=== PATIENT | male | born 1985 | race Caucasian/White ===

== ENCOUNTER 2023-08-06 04:40 | Emergency (ER) | payer MEDICAID, SELFPAY ==
--- NOTE | ~2023-08-06 | CT_ITS ---
CT of the Abdomen and Pelvis: Indication: Abdominal pain, right inguinal hernia Technique: 2.5 mm axial scans were obtained through the abdomen and pelvis following intravenous adm inistration of 100 cc of Omnipaque 350. Dose reduction technique was used on this scan by utilizing a utomated exposure control and iterative reconstruction technique. The dose-length product (DLP) was 5 50.37 mGy-cm. Findings: Scans through the lung bases are unremarkable. The liver, spleen, pancreas, gallbladder, and adrenal glands are within normal limits. There is minim al fullness of the bilateral renal collecting systems. No evidence of aortic aneurysm. No lymphadeno samia. No bowel obstruction or bowel wall thickening. There is no evidence to suggest acute appendicitis. Images through the pelvis were performed. Urinary bladder is well distended. Prostate gland and semin al vesicles are unremarkable. No ascites. Impression: Distended urinary bladder with minimal fullness of the bilateral renal collecting systems. Correlate for urinary retention. No other significant findings. Reviewed, dictated and finalized at location . Impression: Distended urinary bladder with minimal fullness of the bilateral renal collecti ng systems. Correlate for urinary retention. No other significant findings.
[2023-08-06 04:41] VITALS: BP 139/85; PULSE 80; RESP 18; TEMP 36.8; O2SAT 97
--- NOTE | 2023-08-06 04:59 | ED.ABDPAIN ---
HPI - Abdominal Pain General Chief Complaint: Abdominal Pain Stated Complaint: Right Flank Pain Source: patient and family Mode of arrival: ambulatory Limitations: no limitations History of Present Illness HPI narrative: this is a 37-year-old male that presents with some abdominal pain localizing to the right inguinal area a small area in the right inguinal area of his abdomen that is tender with palpation has good no nausea vomiting has had symptoms off and on for the last year and has gotten worse overnight. No other significant past medical history. There is no flank pain, no dysuria no chest pain no shortness of breath. MD elicited complaint: abdominal pain Severity: moderate Pain scale (0-10): 8 Related Data Home Medications Medication Instructions Recorded Confirmed No Home Medications 08/06/23 08/06/23 Allergies Allergy/AdvReac Type Severity Reaction Status Date / Time No Known Allergies Allergy Verified 08/06/23 04:44 Review of Systems Review of Systems: All systems reviewed & are unremarkable except as noted in HPI and below PMFSH Past Medical History Medical History Patient denies medical problems Exam Const: General: no acute distress Nutritional Appearance: well nourished Orientation/consciousness: patient oriented x3 Limitations: no limitations Neck: Neck: normal visual inspection Chest: Chest palpation & inspection: normal inspection of the chest Resp: Effort & Inspection: normal respiratory effort Auscultation: clear to auscultation bilaterally Cardio: Rate: regular rate Rhythm: regular rhythm GI: GI Palp: Yes Soft to palpation and Yes Tenderness to palpation present (GI) : General: Yes bladder normal to palpation Back/Spine/Pelvis: Back: no CVA tenderness Skin: General skin exam: normal color Rashes: no rashes Neuro: General: patient oriented x3 Cranial nerves: Yes Nystagmus not present Speech: normal speech Extrem: General: normal to inspection Psych: Mental Status: mental status grossly normal Affect: normal affect Course Course Emergency Course: reassessment of patient's pain has improved with IV morphine, labs reviewed with patient and all within normal limits, patient had CT scan and O was reviewed that showed no right inguinal hernia. Vital Signs Vital signs: Vital Signs Temperature 36.8 C 08/06/23 04:41 Pulse Rate 80 08/06/23 04:41 Respiratory Rate 18 08/06/23 04:41 Blood Pressure 139/85 08/06/23 04:41 Pulse Oximetry 97 08/06/23 04:41 Oxygen Delivery Room Air 08/06/23 04:41 Temperature 36.8 C 08/06/23 04:41 Pulse Rate 80 08/06/23 04:41 Respiratory Rate 18 08/06/23 04:41 Blood Pressure 139/85 08/06/23 04:41 Pulse Oximetry 97 08/06/23 04:41 Oxygen Delivery Room Air 08/06/23 04:41 Critical Care Time Critical Care Time Critical Care Time: No Discharge Plan Discharge Clinical Impression: Abdominal pain Qualifiers: Abdominal location: unspecified location Qualified Code(s): R10.9 - Unspecified abdominal pain Patient Disposition: Home, Self-Care Condition: Stable Instructions: Antibiotic Form, Abdominal Pain (ED) Additional Instructions: advised to establish with primary for possible referral to surgery to have further evaluation. Prescriptions: No Action No Home Medications Follow-up/Referrals: UNKNOWN,DOCTOR [Primary Care Provider] - Time of Disposition: 06:40
[2023-08-06 05:13] LABS: Basophils Absolute Auto 0.11 K/mm3 (0.00-0.10); Basophils Percent Auto 1.5 % (0.0-1.0); Eosinophils Absolute Auto 0.32 K/mm3 (0.02-0.50); Eosinophils Percent Auto 4.2 % (1.0-6.0); Hematocrit 42.6 % (40.0-54.0); Hemoglobin 14.5 g/dL (14.0-18.0); Immature Granulocyte Absolute 0.01 K/mm3 (0.00-0.00); Immature Granulocyte Percent A 0.1 % (0.0-0.0); Lymphocytes Percent Auto 43.8 % (18.0-42.0); Mean Corpuscular Hemoglobin 29.5 pg (27.0-31.0); Mean Corpuscular Volume 86.6 fL (78.0-102.0); Mean Platelet Volume 9.5 fl (8.7-11.0); Monocytes Absolute Auto 0.36 K/mm3 (0.10-0.90); Monocytes Percent Auto 4.8 % (2.0-11.0); Neutrophils Absolute Auto 3.4 K/mm3 (1.7-7.2); Neutrophils Percent Auto 45.6 % (50.0-70.0); Platelet Count Result 304 K/mm3 (150-420); Red Blood Count 4.92 M/mm3 (4.70-6.10); Red Cell Distribution Width 12.9 % (11.6-14.4); White Blood Count 7.5 K/mm3 (4.8-10.8)
[2023-08-06] MEDS: SODIUM CHLORIDE 0.9% IV 1,000 ML 999 ML IV CONT (05:19)
[2023-08-06] MEDS: MORPHINE SULFATE (*CRX) 4 MG/ML INJ IV PUSH (05:20)
[2023-08-06 05:28] LABS: Alanine Aminotransferase 24 U/L (16-63); Albumin Level 4.2 g/dL (3.4-5.0); Alkaline Phosphatase 71 U/L (46-116); Anion Gap 13 mmol/L (8-16); Aspartate Amino Transferase 14 U/L (15-37); Bilirubin,Total 0.4 mg/dL (0.00-1.00); Blood Urea Nitrogen 6 mg/dL (7-18); Calcium 8.8 mg/dL (8.5-10.1); Carbon Dioxide 23 mmol/L (21-32); Chloride 107 mmol/L (98-108); Estimated CRCL calculation 87 ml/min; Estimated Glomerular Filt Rate > 60; Glucose 102 mg/dL (70-99); Lipase 48 U/L (16-77); Osmolality Calculated 293 mOsm/kg (285-295); Potassium 3.6 mmol/L (3.5-5.1); Sodium 143 mmol/L (136-145); Total Protein 7.6 g/dL (6.4-8.2)
[2023-08-06 05:32] LABS: Lactic Acid Reflex 1.9 mmol/L (0.4-2.0)
[2023-08-06 05:58] LABS: INR 0.9; Partial Thromboplastin Time 25.9 SEC (23.90-30.70); Prothrombin Time 10.1 Seconds (9.50-12.10)
[2023-08-06 06:07] VITALS: BP 130/78; PULSE 87; RESP 18; O2SAT 99
[2023-08-06 06:17] LABS: Appearance Urine Clear (Clear); Bilirubin Urine Negative (Negative); Blood Urine Trace-Intact (Negative); Color Urine Light Yellow (Yellow); Glucose Urine UA Negative (Negative); Ketones Urine Negative (Negative); Leukocyte Esterase Ur Negative LEU/UL (Negative); Nitrate Urine Negative (Negative); Protein Urine Negative (Negative); Specific Grav Ur <= 1.005 (1.010-1.020); Urobilinogen Urine 0.2 mg/dL (0.2-1.0)
[2023-08-06 06:23] LABS: Add Urine Microscopic? YES; Bacteria Urine None seen /hpf; RBC Urine None seen /hpf (0-2); WBC Urine None seen /hpf (0-3)
[2023-08-06 06:47] VITALS: BP 125/83; PULSE 78; RESP 20; TEMP 36.6; O2SAT 100
== END 2023-08-06 06:48 | disposition home or self-care (01) ==
PROVIDERS: Emergency Provider Emergency Medicine
DX: R10.9 Unspecified abdominal pain (principal)
CPT/HCPCS: 36415; 74177; 80053; 81001; 83605; 83690; 85025; 85610; 85730; 96361; 96374; 99284; J2270; J7030; Q9967

== ENCOUNTER 2023-08-13 14:15 | Outpatient (CLI) | payer MEDICAID, SELFPAY ==
[2023-08-13 19:11] LABS: Basophils Absolute Auto 0.1 K/mm3 (0.0-0.1); Basophils Percent Auto 1.3 % (0.2-1.2); Eosinophils Absolute Auto 0.2 K/mm3 (0-0.3); Eosinophils Percent Auto 3.7 % (0-4.4); Hematocrit 46.6 % (42.0-52.0); Hemoglobin 15.7 g/dL (14.0-18.0); Immature Granulocyte Absolute 0.01 K/mm3 (0.00-0.031); Immature Granulocyte Percent A 0.2 % (0-0.5); Immature Platelet Fraction Pct 5.6 % (0.9-11.2); Lymphocytes Absolute Auto 1.93 K/mm3 (0.9-3.2); Lymphocytes Percent Auto 35.9 % (18.3-44.2); Mean Corpuscular HGB Conc 33.7 g/dl (32-36); Mean Corpuscular Hemoglobin 29.8 pg (26-34); Mean Corpuscular Volume 88.6 fl (80-100); Mean Platelet Volume 11.1 fl (7.4-10.4); Monocytes Absolute Auto 0.4 K/mm3 (0.1-0.6); Monocytes Percent Auto 7.1 % (2.6-8.5); Neutrophils Absolute Auto 2.8 K/mm3 (1.3-6.7); Neutrophils Percent Auto 51.8 % (45.5-73.1); Platelet Count Result 259 k/mm3 (150-375); Red Blood Count 5.26 M/mm3 (4.6-6.20); Red Cell Distribution Width 13.2 % (11.5-14.5); White Blood Count 5.4 K/mm3 (4.5-10.0)
[2023-08-13 19:23] LABS: Alanine Aminotransferase 19 U/L (6-50); Albumin Level 4.8 g/dL (3.5-5.1); Alkaline Phosphatase 49 U/L (38-126); Anion Gap 8 mmol/L (8-16); Aspartate Amino Transferase 29 U/L (17-59); Bilirubin,Total 1.2 mg/dL (0.2-1.3); Blood Urea Nitrogen 10 mg/dL (9-20); Calcium 9.3 mg/dL (8.4-10.2); Carbon Dioxide 26 mmol/L (22-30); Chloride 106 mmol/L (98-107); Cholesterol 160 mg/dL (0-200); Estimated Glomerular Filt Rate > 60; Glucose 87 mg/dL (65-110); HDL Direct 47 mg/dL; Potassium 4.8 mmol/L (3.4-5.0); Sodium 140 mmol/L (137-145); Triglycerides 62 mg/dL (<150)
[2023-08-13 19:34] LABS: LDL Cholesterol Direct 88 mg/dL
[2023-08-13 19:54] LABS: Thyroid Stimulating Hormone 0.789 uIU/mL (0.465-4.680)
[2023-08-13 19:58] LABS: Vitamin D 25 Hydroxy 55.6 ng/mL
[2023-08-13 20:16] LABS: Hemoglobin A1C 5.1 % (<5.7)
== END 2023-08-13 14:16 | disposition home or self-care (01) ==
PROVIDERS: PCP Family Medicine; Visit Provider Nurse Practitioner Family
DX: Z00.00 Encounter for general adult medical examination without abnormal findings (principal); E53.8 Deficiency of other specified B group vitamins; Z13.220 Encounter for screening for lipoid disorders; Z13.1 Encounter for screening for diabetes mellitus; Z13.29 Encounter for screening for other suspected endocrine disorder; Z13.21 Encounter for screening for nutritional disorder
CPT/HCPCS: 36415; 80053; 80061; 82306; 82607; 83036; 84443; 85025; 85055

== ENCOUNTER 2023-08-19 14:26 | Outpatient (CLI) | payer MEDICAID, SELFPAY ==
--- NOTE | ~2023-08-19 | US_ITS ---
EXAMINATION: US soft tissue groin RT DATE: 08/19/2023 14:47 INDICATION: Abdominal pain. Right inguinal hernia without obstruction. TECHNIQUE: Multiple grayscale and Doppler ultrasound images of the right inguinal region were obtaine d. COMPARISON: CT dated 08/06/2023 FINDINGS: There is a small hernia at the region of concern containing fat at rest. A short segment of peristals ing bowel along with some additional fat transiently extends into the hernia with Valsalva. The orifi ce to the hernia measures approximately 4.4 x 2.5 cm and extends to an orifice measuring approximatel y 1.6 cm. The hernia lies along side the common femoral artery with configuration on prior CT also co nsistent with a femoral status post inguinal hernia. IMPRESSION: 1. Small segment of peristalsing bowel transiently extends into a small right femoral hernia with Tawana silvia. Reviewed, dictated and finalized at location A. IMPRESSION: 1. Small segment of peristalsing bowel transiently extends into a small right f emoral hernia with Valsalva.
== END 2023-08-19 14:27 | disposition home or self-care (01) ==
LOC: CHSIMG 14:27
PROVIDERS: PCP Nurse Practitioner Family; Visit Provider Nurse Practitioner Family
DX: K40.90 Unilateral inguinal hernia, without obstruction or gangrene, not specified as recurrent (principal)
CPT/HCPCS: 76882

== ENCOUNTER 2023-10-11 13:14 | Outpatient (CLI) | payer OTHER, SELFPAY | END 2023-10-11 13:15 | disposition home or self-care (01) | LOC: ANHGOSHLAB 13:16 | PROVIDERS: PCP Nurse Practitioner Family; Visit Provider Surgery | DX: K41.30 Unilateral femoral hernia, with obstruction, without gangrene, not specified as recurrent (principal) | CPT/HCPCS: 36415; 86850; 86900; 86901 ==

== ENCOUNTER 2023-10-13 01:10 | Day surgery (SDC) | payer OTHER, SELFPAY ==
[2023-10-08 08:35] VITALS: BMI 25.8
--- NOTE | 2023-10-08 08:39 | PC.NURSE ---
Report to the Outpatient Waiting Room, entrance under the green pavilion located off [facility], at time 10:30 on date 10/13/23. Planned Procedure Time: 12:30. Time changes happen often and if your time is changed the preop area will call you the afternoon before. - You and your visitor will be asked to self-screen and do not enter if you have any COVID symptoms. - A mask is optional within the hospital at this time. Patients may have clear liquids (water, carbonated beverages, clear teas, apple juice) until 3 hours prior to surgery (9:30) with a maximum of 20 ounces. - No food from midnight until time of surgery Take the following medications with a SIP of water the morning of surgery: N/A DO NOT STOP ANY OF YOUR OTHER PRESCRIPTION MEDICATIONS PRIOR TO SURGERY ?EXCEPT THE FOLLOWING Medications to discontinue per physician: N/A Date to take last dose: N/A Please no make-up, nail nigerien, hairspray, perfume, deodorant, or body powder the day of surgery. No jewelry (including any body piercings) or valuables the day of surgery, leave them at home. Please take a shower or bath the night before, or the morning of, surgery with an antibacterial soap. Wear comfortable, loose fitting clothing. - Jewelry must be removed prior to entering the operating room. Rings and piercings that are not removed may be cut off. - The hospital will not accept responsibility for valuables. - Please leave all valuables, including medications, at home the day of surgery. If you are going home after surgery, a licensed gravel truck driver must drive you home. - NO public transportation without another adult if you receive anesthesia. - We recommend that an adult stay with you for 24 hours following discharge. - We also recommend that you do not drive, make important decision, drink alcoholic beverages, or take any drugs that were not prescribed by your health care provider for at least 24 hours after your discharge time. Follow any additional instructions given to you from your surgeon. If you or anyone in your household have experienced Covid symptoms in the past week, please notify your surgeon or the nurse liaison at the phone number below for possible testing. Telephone instructions given to PT - MASTER MAYERS and asked if any additional questions and then verbalized understanding. Patient advised to call surgeon office or pre surgery nurse liaison [phone] if any additional questions.
[2023-10-13] VITALS (9 sets, daily range): BP systolic 110–150; BP diastolic 74–91; PULSE 62–107; RESP 12–16; TEMP 36.5–37; O2SAT 97–100
[2023-10-13] MEDS: LACTATED RINGERS 1,000 ML 30 ML IV CONT ×2 (11:00→13:29)
[2023-10-13] MEDS: ACETAMINOPHEN 500 MG TABLET 1000 MG PO (11:30)
--- NOTE | 2023-10-13 11:38 | PM.IMHP ---
H&P: HPI History of Present Illness Date/Time: 10/13/23 11:38 Chief Complaint: Right femoral hernia Narrative: This is a 38-year-old man who presents for right femoral hernia repair. He had been experiencing pain and swelling in the right groin region and as a soft tissue ultrasound showed evidence of right femoral hernia. He reports no changes since last seen in the office. Review of Systems Review of Systems: All systems reviewed & are unremarkable except as noted in HPI and below Constitutional: Constitutional: Denies chills, Denies fever(s), Denies headache(s) and Denies weight loss Eyes: Eyes: Denies change in vision ENT: Denies dizziness, Denies headache(s), Denies neck mass and Denies throat swelling Cardiovascular: Cardiovascular: Denies chest pain, Denies lightheadedness and Denies dyspnea Respiratory: Respiratory: Denies cough, Denies dyspnea and Denies wheezing Gastrointestinal: Gastrointestinal: Denies abdominal pain, Denies change in bowel habits, Denies nausea and Denies vomiting Genitourinary: Genitourinary: Denies hematuria and Denies dysuria Musculoskeletal: Musculoskeletal: Reports as per HPI Integumentary/Breasts: Skin/Breast: Reports as per HPI Neurologic: Denies dizziness and Denies headache(s) Allergic/Immunologic: Allergic/Immunologic: Denies throat swelling and Denies wheezing PMFSH Past Medical History Medical History Asthma Femoral hernia Patient denies medical problems Surgical History Surgical History History of surgery on wrist Social History Social History Smoking status: Never smoker Second hand tobacco smoke exposure: No Alcohol intake: current Drinks per week: 4 Alcohol use details: WEEKENDS Substance use: never Substance use type: does not use Lack of Transportation: No Lack of Food: Never True Current Housing: I Have Housing Concerned About Future Housing: No Difficulty Paying Gas/Electric Bills: No Difficulty Paying for Meds: No Currently Unemployed: No Education: High School Diploma/GED Difficulty w/ Childcare or Family Care: No Living arrangements: alone Occupation/Education: occupation Gender identity (if verbalized by the patient): Male Spiritual care concerns: No Agree to blood products: Yes Meds Home Medications and Allergies Home Medications Medication Instructions Recorded Confirmed Type No Home Medications 10/08/23 10/08/23 History Allergies Allergy/AdvReac Type Severity Reaction Status Date / Time ibuprofen Allergy Severe Swollen Verified 10/08/23 08:34 eyes Exam Const: General: no acute distress and alert Orientation/consciousness: patient oriented x3 HENMT: Head: normocephalic and atraumatic Ears: hearing grossly normal bilaterally Face/Nose/Sinus: Normal nares present Mouth: Yes Normal oral and palatal mucosa present Eyes: Periorbital: periorbital findings normal Sclera: sclerae normal EOM: EOMs intact bilaterally Neck: Neck: normal visual inspection, no lymphadenopathy and trachea midline Chest: Chest palpation & inspection: normal inspection of the chest Resp: Effort & Inspection: normal respiratory effort Auscultation: clear to auscultation bilaterally Cardio: Jugular venous distension: no JVD Rate: regular rate Rhythm: regular rhythm Heart sounds: S1 normal heart sound present and S2 normal heart sound present Peripheral pulses: Peripheral pulses 2+ throughout GI: Inspection: normal to inspection GI Palp: Yes Soft to palpation, No Tenderness to palpation present (GI), No Guarding due to palpation present (GI) and No Rebound tenderness present Percussion: Yes normal to percussion Auscultation: normal bowel sounds : General: Yes no CVA tenderness Scrotum: other (Right femoral hernia) Ba
--- NOTE | 2023-10-13 11:40 | WPDHPUPDATE1 ---
History and Physical Update Update Date/Time: 10/13/23 11:40 History and Physical has been reviewed, including an updated exam of the patient. There are NO changes in the patient's condition. Risks, benefits, and alternatives have been discussed and questions answered. Patient agrees to proceed with procedure.
[2023-10-13] MEDS: fentaNYL CITRATE INJ (*CRX) 100 MCG/2 ML VIAL 25 MCG IV PUSH ×3 (11:45→13:56)
--- NOTE | 2023-10-13 12:02 | P.PNAN_ITS ---
Anes - Initial Pre Proc Eval Procedure: Operation Date: 10/13/23 12:30 Proposed Procedures p Laparoscopic Incarcerated Right Femoral Hernia Repair with Mesh, Davinci Assisted - Mykel Monroe DO Date/Time: 10/13/23 12:02 Surgeon: Mykel Monroe DO Pre Op Diagnosis: Incarcerated Right Femoral Hernia Patient Data Age: 38 Gender: M Height: 1.78 m Weight: 81.65 kg Allergies Allergy/AdvReac Type Severity Reaction Status Date / Time ibuprofen Allergy Severe Swollen Verified 10/08/23 08:34 eyes Home Medications Medication Instructions Recorded Confirmed Type No Home Medications 10/08/23 10/08/23 History Patient hx anesthesia problems: none Family hx anesthesia problems: none Results Review: All pre-operative results and documents have been reviewed as part of the pre- operative evaluation. [facility] Past Medical History Medical History Asthma Femoral hernia Patient denies medical problems Surgical History Surgical History History of surgery on wrist Social History Social History Smoking status: Never smoker Second hand tobacco smoke exposure: No Alcohol intake: current Drinks per week: 4 Alcohol use details: WEEKENDS Substance use: never Substance use type: does not use Lack of Transportation: No Lack of Food: Never True Current Housing: I Have Housing Concerned About Future Housing: No Difficulty Paying Gas/Electric Bills: No Difficulty Paying for Meds: No Currently Unemployed: No Education: High School Diploma/GED Difficulty w/ Childcare or Family Care: No Living arrangements: alone Occupation/Education: occupation Gender identity (if verbalized by the patient): Male Spiritual care concerns: No Agree to blood products: Yes Anes - Eval Final PreProcedure Day of Procedure 10/13/23 12:02 Patient weight: obese Heart: regular rate and rhythm Lungs: clear to auscultation Airway: Mallampati scale class II Neurological: alert and oriented Last oral intake: >/= 8 hours ASA classification: II Emergent: no Anesthetic plan: proceed Anesthesia type and monitoring: general ETT and standard monitoring Results Review: All pre-operative results and documents have been reviewed as part of the pre- operative evaluation. Informed Consent: The patient's anesthetic plan and its attendant risks and benefits were discussed with the patient/family/POA. Questions were solicited and answers provided to the satisfaction of the patient/family/POA.
[2023-10-13] MEDS: ceFAZolin 2 GM/D5W 50 ML 2 GM/50 ML BAG IVPB (12:16)
[2023-10-13] MEDS: BUPIVACAINE/EPINEPHRINE 0.5% 50 ML VIAL 30 ML INFILTRATE (12:48)
--- NOTE | 2023-10-13 13:19 | W.PM.PROC2 ---
Procedure Note - Detailed Date of Procedure 10/13/23 Pre-op Diagnosis Incarcerated Right Femoral Hernia Post-op Diagnosis Same Procedure Performed Laparoscopic right incarcerated femoral hernia repair with mesh, da Bonilla assisted Surgeon Mykel Monroe, DO Anesthesia General and Local (0.5% bupivacaine with epinephrine) Indications This is a 2-year-old man who presented with a right femoral hernia. 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 He went to the emergency department and a CT initially was performed that was read as normal. He then had an ultrasound done which showed evidence of a right femoral hernia. On further review of the CT there did appear to be a femoral hernia that was containing fat. On exam the hernia was not reducible. The patient continued to have pain in this area. Discussions were made with the patient about treatment options and decision was made to proceed with robotic assisted laparoscopic incarcerated right femoral hernia repair with mesh. Findings Laparoscopic incarcerated right femoral hernia repair was performed. The patient was found to have about a 2 cm femoral hernia that was incarcerated with omentum. The omentum was gently manipulated and reduced. A robotic transabdominal preperitoneal approach was utilized for repair. Once a wide enough preperitoneal pocket was created, I then placed a an extra-large 3DMax mid mesh overlying the entire right myopectineal orifice. No specimens were obtained for pathology. Description of Procedure Procedure as well as risks, benefits, and alternatives were discussed with the patient. Written consent was obtained and placed in chart prior to procedure. Patient was brought back to surgical suite. He was placed supine on operating table. Time-out was done to confirm patient and procedure. He was then intubated by Anesthesia Department. His abdomen was prepped and draped in sterile fashion using chlorhexidine prep. 0.5% bupivacaine with epinephrine was infiltrated at each location for incision. An 8 mm incision was made in the left lateral abdomen, and a 5 mm Optiview trocar was advanced through the abdominal layers under direct visualization. Once inside the abdominal cavity, carbon dioxide insufflation was used to create a pneumoperitoneum. A camera was inserted and the abdominal cavity was inspected. The patient was placed in slight Trendelenburg position. An 8 millimeter incision was made on the right lateral abdomen and an 8 millimeter trocar was inserted under direct visualization. Another 8 millimeter incision was made just superior to the umbilicus and an 8 millimeter trocar was inserted under direct visualization. The 5 mm port was then removed and this was replaced with another 8 mm robotic port. The robotic arms were brought up to the patient's bedside and secured to the ports. The camera and instruments were inserted. I then moved over to the robotic console and took control of the camera and instruments. The incarcerated omentum was carefully reduced with gentle traction and dissection with scissors with electrocautery. After careful inspection of the abdominal cavity, I began scoring the peritoneum along the right lower quadrant using scissors with electrocautery. The preperitoneal plane was entered and this was carefully dissected caudally along the inferior epigastric vessels. Careful dissection with scissors with electrocautery and blunt dissection was used to continue this dissection. I dissected far enough laterally to allow for mesh placement, and also dissected medially to identify the pubic arch and José's ligament. The hernia sac was identified and carefully dissected posteriorly. The cord contents were also identified and the peritoneum was carefully dissected far enough posteriorly to allow for mesh placement. Once an adequate pocket was created, I then placed the mesh within the preperitoneal pocket and carefu
[2023-10-13] MEDS: oxyCODONE HCL (*CRX) 5 MG TAB IR PO (14:48)
== END 2023-10-13 15:24 | disposition home or self-care (01) ==
PROVIDERS: PCP Nurse Practitioner Family; Visit Provider Surgery
PROC: (CPT 49659; principal; 2023-10-13 12:30)
DX: K41.30 Unilateral femoral hernia, with obstruction, without gangrene, not specified as recurrent (principal); J45.909 Unspecified asthma, uncomplicated; E66.9 Obesity, unspecified; Z68.28 Body mass index [BMI] 28.0-28.9, adult
CPT/HCPCS: 49659; S2900; A9270; C1781; J0330; J0690; J1100; J1170; J2250; J2405; J2704; J3010; J7120

== ENCOUNTER 2023-11-10 15:27 | Outpatient (CLI) | payer OTHER, SELFPAY ==
[2023-11-10 19:55] LABS: Magnesium 2.4 mg/dL (1.6-2.3)
== END 2023-11-10 15:28 | disposition home or self-care (01) ==
LOC: ANHGOSHLAB 15:29
PROVIDERS: PCP Nurse Practitioner Family; Visit Provider Nurse Practitioner Family
DX: G25.81 Restless legs syndrome (principal)
CPT/HCPCS: 36415; 82728; 83735

== ENCOUNTER 2024-02-03 15:28 | Outpatient (CLI) | payer OTHER, SELFPAY ==
--- NOTE | ~2024-02-03 | XR_ITS ---
EXAMINATION: XR lumbar spine min 4V DATE: 02/03/2024 15:43 INDICATION: Low back pain, unspecified. TECHNIQUE: 5 views of the lumbar spine were obtained. COMPARISON: CT abdomen and pelvis 08/06/2023 FINDINGS: Bone alignment is normal. There is a Schmorl's node of inferior endplate of L1. There is mi ldly decreased disc height at L1-L2 and L5-S1. There is multilevel mild facet joint osteoarthritis. IMPRESSION: 1. Mild lumbar spondylosis. Reviewed, dictated and finalized at location E. SUPERVISOR IMPRESSION: 1. Mild lumbar spondylosis.
== END 2024-02-03 15:29 | disposition home or self-care (01) ==
LOC: ANHIMG 15:31
PROVIDERS: PCP Nurse Practitioner Family; Visit Provider Nurse Practitioner Family
DX: G25.81 Restless legs syndrome (principal); M47.896 Other spondylosis, lumbar region
CPT/HCPCS: 72110

== ENCOUNTER 2024-02-15 07:56 | Outpatient (RCR) | payer OTHER, SELFPAY ==
--- NOTE | 2024-02-15 09:06 | PTOPEVAL1 ---
Assessment and note entered by Jacinto Schrader, PT Evaluation Information Assessment Status Evaluation Diagnosis Restless leg pain, Low back pain Onset 2014 Subjective Information Reports that he has been having nerve issues with his right leg for almost a decade. He is having trouble getting to bed and getting comfortable at this time. All pain is in right leg. Denies falls. HE will occasionally have pain into his right foot and it will occasionally fall asleep while laying down. Reported Pain Level Pain Score 0: Self Report Assessment PT Clinical Summary Patient presents with signs and symptoms consistent with sciatic pain both stationary and activity based. Demonstrates good wally strength, but poor hip disassociation leading to increased posterior chain and pelvic pull with activity. Will benefit from skilled therapy to address these deficits. Plan of Care Interventions Electrical Stimulation,Gait Training,Hot Pack/Cold Pack,Manual Therapy,Mechanical Traction,Neuro Re- education,Therapeutic Activities,Therapeutic Exercise PT Services Indicated Yes Treatment Frequency and 2x/week for 8 visits Duration These treatments will address the objective and functional deficits as defined above. The patient will be advanced safely and appropriately in order for the patient to progress towards his/her prior level of function. Additional exercises will be introduced and as well as a comprehensive home exercise program upon discharge, if needed, ?to ensure carryover of functional gains achieved in the clinic. This treatment plan has been reviewed and agreement upon by the patient.
--- NOTE | 2024-02-15 09:06 | OPREHPOC ---
Outpatient Therapy Plan of Care This is a Multidisciplinary Plan of Care that may contain components documented by all disciplines (PT, OT, and ST.) PT Problem 1 PT Problem #1 Knowledge Deficit PT Goal 1 Goal [place] with HEP Target Visit 4 PT Problem 2 PT Problem #2 Pain PT Goal 1 Goal Report 50% improvement in quality and quantity of sleep for gross function and comfort Target Visit 4 PT Problem 3 PT Problem #3 Impaired Flexibility PT Goal 1 Goal Demonstrate -20 degrees wally hamstring 90/90 test to reduce posterior chain restricrtion with ADLs Target Visit 8 PT Goal 2 Goal Demonstrate minimal piriformis restriction bilaterally Target Visit 8 PT Problem 4 PT Problem #4 Impaired Range of Motion PT Goal 1 Goal Improve wally hip abduction motion to 40 degrees to reduce adductor capsule restriction Target Visit 8
--- NOTE | 2024-02-23 09:05 | PCPTNOTE ---
Patient no showed to appointment this date. Called and spoke with emergency contact number who states patient is sick and was suppose to call and cancel appointment today. Reminded contact of patient's appointment on WednesdayFebruary 24 at 8:00.
--- NOTE | 2024-02-25 08:10 | PCPTNOTE ---
Patient called & cancelled scheduled appointment this date due, did not give a reason why.
--- NOTE | 2024-02-29 09:09 | PCPTNOTE ---
Patient called & cancelled scheduled appointment this date. No reason given.
--- NOTE | 2024-03-02 09:16 | PCPTNOTE ---
Patient no showed to appointment this date. Patient is to be discharge per attendance policy.
--- NOTE | 2024-03-03 09:30 | PTOPDC ---
Assessment and note entered by Jacinto Schrader, PT Evaluation Information Assessment Status Discharge - Pt Not Present Diagnosis Restless leg pain, Low back pain Onset 2014 Subjective Information Reports that he has been having nerve issues with his right leg for almost a decade. He is having trouble getting to bed and getting comfortable at this time. All pain is in right leg. Denies falls. HE will occasionally have pain into his right foot and it will occasionally fall asleep while laying down. Assessment PT Clinical Summary Patient has failed to return to therapy following initial evaluation. Will be discharged from skilled therapy at this time due to attendance policy and non compliance. Plan of Care PT Services Indicated D/C to HEP
== END 2024-03-03 10:12 | disposition home or self-care (01) ==
LOC: ANHGOSHPT 07:56
PROVIDERS: PCP Nurse Practitioner Family; Visit Provider Nurse Practitioner Family
DX: G25.81 Restless legs syndrome (principal)
CPT/HCPCS: 97110; 97140; 97161; 99199

== ENCOUNTER 2024-05-07 04:07 | Emergency (ER) | payer OTHER, SELFPAY ==
--- NOTE | 2024-05-07 04:10 | ED.GENADULT ---
HPI - General Adult General Chief complaint: Allergic Reaction Stated complaint: allergic reaction Time Seen by Provider: 05/07/24 04:08 History of Present Illness HPI narrative: Chad is a 38M with a PMH of insomnia, incarcerated femoral hernia, degenerative disc disease that presented to the ED with concerns of an allergic reaction. He had the same reaction a few weeks ago and he took benadryl and 30mg of prednisone a day for several days and it improved. A couple weeks passed and it came back. He took more benadryl and a single dose of prednisone. He had some wheezing and dyspnea so he came in, however he denied any throat or tongue swelling. He is unsure of any new exposures. He took benadryl before coming in. Related Data Allergies Allergy/AdvReac Type Severity Reaction Status Date / Time ibuprofen Allergy Severe Swollen Verified 02/03/24 14:40 eyes Review of Systems Review of Systems: All systems reviewed & are unremarkable except as noted in HPI and below [facility] Past Medical History Medical History (Updated 05/07/24 @ 04:31 by Julián Ignacio DO) Asthma DDD (degenerative disc disease) Femoral hernia Insomnia Lumbar back pain Patient denies medical problems RLS (restless legs syndrome) Surgical History Surgical History History of surgery on wrist Hx of hernia repair Laparoscopic right incarcerated femoral hernia repair with mesh, da Bonilla assist on 10/13/23 Social History Social History Smoking status: Never smoker Second hand tobacco smoke exposure: No Alcohol intake: current Drinks per week: 4 Alcohol use details: WEEKENDS Substance use: never Substance use type: does not use Lack of Transportation: No Lack of Food: Never True Current Housing: I Have Housing Concerned About Future Housing: No Difficulty Paying Gas/Electric Bills: No Difficulty Paying for Meds: No Currently Unemployed: No Education: High School Diploma/GED Difficulty w/ Childcare or Family Care: No Living arrangements: alone Occupation/Education: occupation Gender identity (if verbalized by the patient): Male Spiritual care concerns: No Agree to blood products: Yes Exam Const: General: cooperative, healthy appearing, comfortable, no acute distress, well developed, alert, awake and Physically active Orientation/consciousness: oriented to person, oriented to place and oriented to time HENMT: Head: normal to inspection, normocephalic and atraumatic Ears: hearing grossly normal bilaterally and external ears normal Face/Nose/Sinus: Normal external nose present Eyes: General: appearance normal, both eyes and all related structures Periorbital: periorbital findings normal Sclera: sclerae normal Pupils: Equal, round and reactive pupils present Neck: Neck: normal visual inspection Chest: Chest palpation & inspection: normal inspection of the chest Resp: Effort & Inspection: normal respiratory effort, able to speak in complete sentences and no respiratory distress Auscultation: clear to auscultation bilaterally Cardio: Jugular venous distension: no JVD Rate: regular rate Rhythm: regular rhythm GI: Inspection: normal to inspection GI Palp: Yes Soft to palpation Auscultation: normal bowel sounds Skin: General skin exam: normal color and no rashes or lesions noted Neuro: General: oriented to person, oriented to place and oriented to time Cranial nerves: Yes Equal, round and reactive pupils present Extrem: General: normal to inspection Course Course Emergency Course: Given pepsid and prednisone in the ED. Vital Signs Vital signs: Vital Signs Temperature 98 F 05/07/24 04:11 Pulse Rate 117 H 05/07/24 04:11 Respiratory Rate 18 05/07/24 04:11 Blood Pressure 144/97 H 05/07/24 04:11 Pulse Oximetry 96 05/07/24 04:11 Oxygen Delivery Room Air 05/07/24 04:11
[2024-05-07 04:11] VITALS: BP 144/97; PULSE 117; RESP 18; TEMP 36.6; O2SAT 96
[2024-05-07 04:24] VITALS: O2SAT 96
[2024-05-07] MEDS: predniSONE 40 MG, predniSONE 10 MG 50 MG PO (04:30)
[2024-05-07] MEDS: FAMOTIDINE 20 MG TABLET PO (04:30)
[2024-05-07 04:39] VITALS: BP 139/96; PULSE 97; RESP 18; O2SAT 98
== END 2024-05-07 04:39 | disposition home or self-care (01) ==
PROVIDERS: Emergency Provider Family Medicine; PCP Family Medicine
DX: T78.40XA Allergy, unspecified, initial encounter (principal)
CPT/HCPCS: 99283; A9270; J7512

== ENCOUNTER 2024-07-07 09:00 | Outpatient (CLI) | payer OTHER, SELFPAY ==
--- NOTE | 2024-07-27 16:01 | WPDSLEEPSTUD ---
Sleep Study Date of Study: 07/07/24 Ordering Provider: Esther Magdaleno APRN Interpreting Physician: Debbie Alexander DO Sleep Study Type: Polysomnogram Height: 1.78 m Weight: 92.986 kg Body Mass Index: 29.4 Neck Circumference (inches): 16 Kathleen: 10 Reason for Sleep Study Difficulty falling and staying asleep Sleep History The patient is a 38-year-old male that had a sleep study ordered by his primary care for evaluation of sleep apnea. The patient works in construction. He denies awakening from sleep short of breath. He occasionally awakens at night with heartburn, belching or cough. He occasionally snores but is never loud enough others complain. He frequently has trouble sleeping when he has a cold. He denies waking up gasping for air throughout the night. He denies having breathing problems at night observed by himself or others. He denies sweating excessively at night. He denies having heart palpitations or irregular heartbeats during the night. He occasionally falls asleep during the day but never while driving. He denies sleep paralysis and cataplexy. He frequently has trouble at school or work due to sleepiness. He constantly experiences vivid dreamlike scenes upon awakening falling asleep. He denies feeling afraid of going to sleep. He denies having nightmares. He frequently remembers his dreams. He constantly has thoughts racing through his mind. He frequently feels sad or depressed. He constantly has anxiety. He denies having muscular tension. He frequently notices parts of his body jerk. He occasionally kicks during the night. He constantly experiences crawling and aching feelings in his legs. He constantly has leg pain during the night. He denies grinding his teeth during sleep and denies awakening with morning jaw pain. He is constantly bothered by pain during the day and occasionally awakened by pain during the night. He constantly wakes up feeling stiff in the morning. He occasionally wakes up with sore or achy muscles. He occasionally wakes up with pain in the neck, spine or other joints. He goes to bed at 5:00 a.m. on both weekdays and weekends. It takes him 5-6 hours to fall asleep. He wakes up every 2 hours to urinate and it can take 30-45 minutes to fall back asleep. He wakes up at noon on weekdays and at 1:00 p.m. on the weekends. He typically gets 4 hours of sleep per night. He will stay in bed for 30 minutes after waking up in morning. He currently lives with a roommate. He denies consuming any caffeinated beverages within 2 hours of bedtime. He denies engaging in physical exercise before bedtime. He will watch television before falling asleep. He denies taking naps in the afternoon or the evening. He consumes 6 alcoholic beverages per day. He denies consuming any caffeinated beverages throughout the day. He denies tobacco and recreational drug use. [facility] Past Medical History Medical History Apnea Asthma DDD (degenerative disc disease) Depression Femoral hernia Hypersomnia Hyposomnia Insomnia Lumbar back pain Patient denies medical problems RLS (restless legs syndrome) Surgical History Surgical History History of surgery on wrist Hx of hernia repair Laparoscopic right incarcerated femoral hernia repair with mesh, da Bonilla assist on 10/13/23 Social History Social History Smoking status: Never smoker Second hand tobacco smoke exposure: No Alcohol intake: current Drinks per week: 4 Alcohol use details: WEEKENDS Substance use: never Substance use type: does not use Lack of Transportation: No Lack of Food: Never True Current Housing: I Have Housing Concerned About Future Housing: No Difficulty Paying Gas/Electric Bills: No Difficulty Paying for Meds: No Currently Unemployed:
[2024-07-27 16:02] VITALS: BMI 29.4
== END 2024-07-08 07:09 | disposition home or self-care (01) ==
LOC: ANHCSM 09:01
PROVIDERS: PCP Family Medicine; Visit Provider Nurse Practitioner Family
DX: G47.10 Hypersomnia, unspecified (principal); F51.05 Insomnia due to other mental disorder; F99 Mental disorder, not otherwise specified; G25.81 Restless legs syndrome; R06.81 Apnea, not elsewhere classified; F39 Unspecified mood [affective] disorder
CPT/HCPCS: 95810

== ENCOUNTER 2024-10-25 15:06 | Outpatient (CLI) | payer OTHER, SELFPAY ==
[2024-10-25 20:27] LABS: Basophils Absolute Auto 0.1 K/mm3 (0.0-0.1); Basophils Percent Auto 1.4 % (0.2-1.2); Eosinophils Absolute Auto 0.2 K/mm3 (0-0.3); Hematocrit 45.9 % (42.0-52.0); Hemoglobin 15.6 g/dL (14.0-18.0); Lymphocytes Absolute Auto 1.76 K/mm3 (0.9-3.2); Lymphocytes Percent Auto 35.5 % (18.3-44.2); Mean Corpuscular Hemoglobin 30.1 pg (26-34); Mean Corpuscular Volume 88.4 fl (80-100); Mean Platelet Volume 9.7 fl (7.4-10.4); Monocytes Absolute Auto 0.4 K/mm3 (0.1-0.6); Monocytes Percent Auto 8.7 % (2.6-8.5); Neutrophils Absolute Auto 2.5 K/mm3 (1.3-6.7); Neutrophils Percent Auto 50.4 % (45.5-73.1); Platelet Count Result 253 k/mm3 (150-375); Red Blood Count 5.19 M/mm3 (4.6-6.20); Red Cell Distribution Width 12.8 % (11.5-14.5)
[2024-10-25 21:22] LABS: Alanine Aminotransferase 151 U/L (6-50); Albumin Level 4.5 g/dL (3.5-5.1); Alkaline Phosphatase 60 U/L (38-126); Anion Gap 5 mmol/L (4-12); Aspartate Amino Transferase 89 U/L (17-59); Bilirubin,Total 0.8 mg/dL (0.2-1.3); Blood Urea Nitrogen 12 mg/dL (9-20); Calcium 9.2 mg/dL (8.4-10.2); Carbon Dioxide 26 mmol/L (22-30); Chloride 105 mmol/L (98-107); Cholesterol 190 mg/dL (0-200); Estimated Glomerular Filt Rate > 60; Glucose 101 mg/dL (65-110); HDL Direct 42 mg/dL; Potassium 4.8 mmol/L (3.4-5.0); Sodium 136 mmol/L (137-145); Triglycerides 115 mg/dL (<150)
[2024-10-25 21:33] LABS: LDL Cholesterol Direct 115 mg/dL
== END 2024-10-25 15:07 | disposition home or self-care (01) ==
LOC: ANHGOSHLAB 15:06
PROVIDERS: PCP Family Medicine; Visit Provider Student in an Organized Health Care Education/Training Program
DX: Z13.220 Encounter for screening for lipoid disorders (principal); Z13.29 Encounter for screening for other suspected endocrine disorder; Z13.0 Encounter for screening for diseases of the blood and blood-forming organs and certain disorders involving the immune mechanism; G47.00 Insomnia, unspecified
CPT/HCPCS: 36415; 80053; 80061; 84443; 85025

== ENCOUNTER 2025-04-11 04:23 | Emergency (ER) | payer OTHER, SELFPAY ==
[2025-04-11] VITALS (28 sets, daily range): BP systolic 110–164; BP diastolic 76–125; PULSE 82–100; RESP 10–26; TEMP 36.8; O2SAT 93–100
--- NOTE | ~2025-04-11 | XR_ITS ---
Portable chest x-ray Comparison: None Clinical History: Chest pain Findings: Lungs are clear, without focal consolidation or pleural effusion. Cardiomediastinal silho uette is unremarkable. Bones and soft tissues are unremarkable. Impression: Normal chest. Reviewed, dictated and finalized at location . Impression: Normal chest.
--- NOTE | 2025-04-11 04:25 | ECG_ITS ---
Test Date: 2025-04-11 04:31:03 Measurements Intervals [place] Rate: 100 P: 8 RI: 164 QRS: -37 QRSD: 102 T: 51 QT: 347 QTc: 448 Interpretive Statements SINUS TACHYCARDIA LEFT AXIS DEVIATION [QRS AXIS < -30] No previous ECG available for comparison Electronically Signed On 04-11-2025 11:43:45 CDT by Fany Sauceda M.D.
--- NOTE | 2025-04-11 04:27 | ED.CHESTPAIN ---
HPI - Chest Pain General Chief Complaint: Chest Pain <Juventino Leon MD - Last Filed: 04/11/25 07:12> Stated Complaint: Chest Pain <Juventino Leon MD - Last Filed: 04/11/25 07:12> Time Seen by Provider: 04/11/25 04:27 <Juventino Leon MD - Last Filed: 04/11/25 07:12> Source: patient and family <Juventino Leon MD - Last Filed: 04/11/25 07:12> Mode of arrival: ambulatory <Juventino Leon MD - Last Filed: 04/11/25 07:12> Limitations: no limitations <Juventino Leon MD - Last Filed: 04/11/25 07:12> History of Present Illness HPI narrative: patient is a 39-year-old male with left-sided chest pain that started a few hours ago while he was at home. No history of CAD. No history of hypertension. He presented to the ER with elevated blood pressure. <Juventino Leon MD - Last Filed: 04/11/25 07:12> MD complaint: chest pain <Juventino Leon MD - Last Filed: 04/11/25 07:12> Pertinent past history: other ( None) <Juventino Leon MD - Last Filed: 04/11/25 07:12> Onset (ago): hour(s) ( 3) <Juventino Leon MD - Last Filed: 04/11/25 07:12> Timing of current episode: episodic, constant and still present <Juventino Leon MD - Last Filed: 04/11/25 07:12> Prior episodes: No <Juventino Leon MD - Last Filed: 04/11/25 07:12> Onset: during rest and during exertion <Juventino Leon MD - Last Filed: 04/11/25 07:12> Pain location: substernal and left chest <MD Enrique Julio Last Filed: 04/11/25 07:12> Pain radiation: other ( left lower extremity with shooting pain) <Juventino Leon MD - Last Filed: 04/11/25 07:12> Severity: mild <Juventino Leon MD - Last Filed: 04/11/25 07:12> Pain scale (0-10): 4 <Juventino Leon MD - Last Filed: 04/11/25 07:12> Quality: sharp and shooting <Juventino Leon MD - Last Filed: 04/11/25 07:12> Relieving factors: nothing <Juventino Leon MD - Last Filed: 04/11/25 07:12> Exacerbating factors: nothing <Juventino Leon MD - Last Filed: 04/11/25 07:12> Context: other ( patient having left-sided chest pain for the past few hours and continued chest pain so he came to ER for evaluation.) <Juventino Leon MD - Last Filed: 04/11/25 07:12> Associated symptoms: other ( Left lower extremity shooting pain that has resolved at this time.) <Juventino Leon MD - Last Filed: 04/11/25 07:12> Treatment prior to arrival: none <Juventino Leon MD - Last Filed: 04/11/25 07:12> Risk Factors Coronary artery disease risk factors: none <Juventino Leon MD - Last Filed: 04/11/25 07:12> Thoracic aortic dissection risk factors: none <Juventino Leon MD - Last Filed: 04/11/25 07:12> Related Data Allergies/Adverse Reactions: Allergies Allergy/AdvReac Type Severity Reaction Status Date / Time ibuprofen Allergy Severe Swollen Verified 10/27/24 14:31 eyes <Juventino Leon MD - Last Filed: 04/11/25 07:12> Review of Systems Review of Systems: All systems reviewed & are unremarkable except as noted in HPI and below <Juventino Leon MD - Last Filed: 04/11/25 07:12> Constitutional: Constitutional: Reports no additional constitutional complaints <Juventino Leon MD - Last Filed: 04/11/25 07:12> Eyes: Eyes: Reports no additional eye complaints <Juventino Leon MD - Last Filed: 04/11/25 07:12> ENT: Reports system reviewed and no additional complaints, except as documented <Juventino Leon MD - Last Filed: 04/11/25 07:12> Cardiovascular: Cardiovascular: Reports no additional cardiovascular complaints <Juventino Leon MD - Last Filed: 04/11/25 07:12> Respiratory: Respiratory: Reports no additional respiratory complaints <Juventino Leon MD - Last Filed: 04/11/25 07:12> Gastrointestinal: Gastrointestinal: Reports no additional gastrointestinal complaints <Juventino Leon MD - Last Filed: 04/11/25 07:12> Genitourinary: Genitourinary: Reports no additional male genitourinary complaints <Juventino Leon MD - Last Filed: 04/11/25 07:12> Musculoskeletal: Musculoskeletal: Reports no additional musculoskeletal complaints <Juventino Leon MD - Last Filed: 04/11/25 07:12> Integumentary/Breasts: Skin/Breast: Reports system reviewed and no additional complaints, except as docu <Juventino Leon MD - Last Filed: 04/11/25 07:12> Neurologic: Reports system reviewed and no additional complaints, except as documented <Juventino Leon MD - Last Filed: 04/11/25 07:12> Psychiatric: Psychiatric: Reports no additional psychiatric complaints <Juventino Leon MD - Last Filed: 04/11/25 07:12> Endocrine: Endocrine: Reports no additional endocrine complaints <Juventino Leon MD - Last Filed: 04/11/25 07:12> Hematologic/Lymphatic: Hematologic/Lymphatic: Reports no additional hematologic/lymphatic complaints <Juventino Leon MD - Last Filed: 04/11/25 07:12> Allergic/Immunologic: Allergic/Immunologic: Reports no additional allergic/immunologic complaints <Juventino Leon MD - Last Filed: 04/11/25 07:12> PMFSH Past Medical History Medical History: Medical History Depression Hyposomnia Apnea Hypersomnia Lumbar back pain DDD (degenerative disc disease) Insomnia RLS (restless legs syndrome) Femoral hernia Asthma Patient denies medical problems <Juventino Leon MD - Last Filed: 04/11/25 07:12> Surgical History Surgical History: Surgical History Hx of hernia repair Laparoscopic right incarcerated femoral hernia repair with mesh, da Bonilla assist on 10/13/23 History of surgery on wrist <Juventino Leon MD - Last Filed: 04/11/25 07:12> Social History Social History: Social History Smoking status: Never smoker Tobacco type: e-cigarettes/vaping Second hand tobacco smoke exposure: No Alcohol intake: current Drinks per week: 49 Alcohol use details: Beer Substance use: never Substance use type: does not use Do You Feel Safe in your Home?: Yes Lack of Transportation: No Lack of Food: Never True Current Housing: I Have Housing Concerned About Future Housing: No Difficulty Paying Gas/Electric Bills: No Difficulty Paying for Meds: No Currently Unemployed: No Education: High School Diploma/GED Difficulty w/ Childcare or Family Care: No Living arrangements: alone Occupation/Education: occupation Gender identity (if verbalized by the patient): Male Spiritual care concerns: No Agree to blood products: Yes <Juventino Leon MD - Last Filed: 04/11/25 07:12> Exam Const: General: healthy appearing <Juventino Leon MD - Last Filed: 04/11/25 07:12> Nutritional Appearance: well nourished <Juventino Leon MD - Last Filed: 04/11/25 07:12> Orientation/consciousness: patient oriented x3 <Juventino Leon MD - Last Filed: 04/11/25 07:12> Limitations: no limitations <Juventino Leon MD - Last Filed: 04/11/25 07:12> HENMT: Head: normal to inspection <Juventino Leon MD - Last Filed: 04/11/25 07:12> Ears: external ears normal <MD Enrique Julio Last Filed: 04/11/25 07:12> Face/Nose/Sinus: Normal external nose present <MD Enrique Juloi Last Filed: 04/11/25 07:12> Eyes: Conjunctivae: conjunctivae normal <MD Enrique Julio Last Filed: 04/11/25 07:12> Pupils: Equal, round and reactive pupils present <MD Enrique Julio Last Filed: 04/11/25 07:12> EOM: EOMs intact bilaterally <MD Enrique Julio Last Filed: 04/11/25 07:12> Neck: Neck: normal visual inspection <MD Enrique Julio Last Filed: 04/11/25 07:12> Chest: Chest palpation & inspection: normal inspection of the chest <MD Enrique Julio Last Filed: 04/11/25 07:12> Resp: Effort & Inspection: normal respiratory effort and not labored <MD Enrique Julio Last Filed: 04/11/25 07:12> Auscultation: clear to auscultation bilaterally and no crackles <MD Enrique Julio Last Filed: 04/11/25 07:12> Cardio: Rate: regular rate <MD Enrique Julio Last Filed: 04/11/25 07:12> Rhythm: regular rhythm <MD Enrique Julio Last Filed: 04/11/25 07:12> Heart sounds: no murmurs <MD Enrique Julio Last Filed: 04/11/25 07:12> GI: Inspection: non-distended <MD Enrique Julio Last Filed: 04/11/25 07:12> GI Palp: Yes Soft to palpation and No Tenderness to palpation present (GI) <MD Enrique Julio Last Filed: 04/11/25 07:12> Auscultation: normal bowel sounds <MD Enrique Julio Last Filed: 04/11/25 07:12> : General: Yes bladder normal to palpation <Juventino Leon MD - Last Filed: 04/11/25 07:12> Back/Spine/Pelvis: Back: no CVA tenderness <Juventino Leon MD - Last Filed: 04/11/25 07:12> Skin: General skin exam: normal color <Juventino Leon MD - Last Filed: 04/11/25 07:12> Rashes: no rashes <Juventino Leon MD - Last Filed: 04/11/25 07:12> Wounds: no wounds <Juventino Leon MD - Last Filed: 04/11/25 07:12> Neuro: General: patient oriented x3 <Juventino Leon MD - Last Filed: 04/11/25 07:12> Cranial nerves: Yes Nystagmus not present <Juventino Leon MD - Last Filed: 04/11/25 07:12> Speech: normal speech <Juventino Leon MD - Last Filed: 04/11/25 07:12> Gait exam (Neuro): Normal gait present <Juventino Leon MD - Last Filed: 04/11/25 07:12> Extrem: General: normal to inspection <Juventino Leon MD - Last Filed: 04/11/25 07:12> Psych: Mental Status: mental status grossly normal <Juventino Leon MD - Last Filed: 04/11/25 07:12> Affect: normal affect <Juventino Leon MD - Last Filed: 04/11/25 07:12> Attitude: cooperative <Juventino Leon MD - Last Filed: 04/11/25 07:12> Course Course Emergency Course: 7:[address] Paniagua 39-year-old male smoker with no history of hypertension, dyslipidemia, family history presents to the ED with left chest pain which started at 3:00 a.m.. No radiation of the pain. Pain is rated as 4/10. No shortness of breath or lightheadedness. Patient has had prior history of left-sided pain. The pain tends to get worse with deep breathing. Physical examination was unremarkable except for elevated blood pressure of 137/99 Patient had blood work which revealed normal blood counts, negative D-dimer, elevated LFTs and normal troponin and proBNP. chest x-ray was unremarkable. EKG did not show any acute ST elevation. <Chang Paniagua MD - Last Filed: 04/11/25 08:57> Vital Signs Vital signs: Vital Signs Temperature 36.8 C 04/11/25 04:23 Pulse Rate 100 04/11/25 04:23 Respiratory Rate 18 04/11/25 04:23 Blood Pressure 157/118 H 04/11/25 04:23 Pulse Oximetry 99 04/11/25 04:23 Oxygen Delivery Room Air 04/11/25 04:23 Temperature 36.8 C 04/11/25 04:23 Pulse Rate 86 04/11/25 08:46 Respiratory Rate 19 04/11/25 08:46 Blood Pressure 116/76 04/11/25 08:45 Pulse Oximetry 95 04/11/25 08:46 Oxygen Delivery Room Air 04/11/25 08:45 <Juventino Leon MD - Last Filed: 04/11/25 07:12> Vital Signs Temperature 36.8 C 04/11/25 04:23 Pulse Rate 100 04/11/25 04:23 Respiratory Rate 18 04/11/25 04:23 Blood Pressure 157/118 H 04/11/25 04:23 Pulse Oximetry 99 04/11/25 04:23 Oxygen Delivery Room Air 04/11/25 04:23 Temperature 36.8 C 04/11/25 04:23 Pulse Rate 86 04/11/25 08:46 Respiratory Rate 19 04/11/25 08:46 Blood Pressure 116/76 04/11/25 08:45 Pulse Oximetry 95 04/11/25 08:46 Oxygen Delivery Room Air 04/11/25 08:45 <Chang Paniagua MD - Last Filed: 04/11/25 08:57> MDM - Chest Pain MDM Narrative Medical decision making narrative: Patient is a 39-year-old male with left-sided chest pain this evening for the past 3-4 hours. We will do a cardiac workup at this time. We will treat blood pressure accordingly. patient's pain started to get better and he is feeling better. I treated blood pressure with labetalol. Patient will be transferred over the next physician care at shift change. I suggest repeat troponin level. <Juventino Leon MD - Last Filed: 04/11/25 07:12> Patient is a 39-year-old male with left-sided chest pain this evening for the past 3-4 hours. We will do a cardiac workup at this time. We will treat blood pressure accordingly. patient's pain started to get better and he is feeling better. I treated blood pressure with labetalol. Patient will be transferred over the next physician care at shift change. I suggest repeat troponin level. chest pain hepatitis <Chang Paniagua MD - Last Filed: 04/11/25 08:57> Differential Diagnosis Differential diagnosis: Likely fracture of rib, pneumothorax and stable angina <Chang Paniagua MD - Last Filed: 04/11/25 08:57> Lab Data Attestation: I reviewed the patient's lab results. <Juventino Leon MD - Last Filed: 04/11/25 07:12> Result diagrams: 04/11/25 05:06 04/11/25 04:35 <Juventino Leon MD - Last Filed: 04/11/25 07:12> Labs: Lab Results 04/11/25 04/11/25 04/11/25 Range/Units 04:35 04:51 05:06 WBC Cancelled 6.9 RBC Cancelled 5.55 Hgb Cancelled 16.1 Hct Cancelled 48.4 MCV Cancelled 87.2 MCH Cancelled 29.0 MCHC Cancelled 33.3 RDW Cancelled 13.1 Plt Count Cancelled 295 MPV Cancelled 9.4 Immature Gran % (Auto) Cancelled 0.3 H Neut % (Auto) Cancelled 46.9 L Lymph % (Auto) Cancelled 41.9 [place] % (Auto) Cancelled 6.4 Eos % (Auto) Cancelled 3.2 Baso % (Auto) Cancelled 1.3 H Lymph # (Auto) Cancelled 2.87 [place] # (Auto) Cancelled 0.44 Eos # (Auto) Cancelled 0.22 Baso # (Auto) Cancelled 0.09 Abs Immat Gran (auto) Cancelled 0.02 H Absolute Neuts (auto) Cancelled 3.21 Absolute Nucleated RBC Cancelled 0.00 Nucleated RBC % Cancelled 0.0 % Immature Plt Fraction Cancelled PT 9.9 (9.50-12.1) Seconds INR 0.9 APTT 25.4 (23.9-30.70) Sec D-Dimer 0.19 (0.19-0.50) mg/L Sodium 145 (137-145) mmol/L Potassium 4.4 (3.4-5.0) mmol/L Chloride 108 H (98-107) mmol/L Carbon Dioxide 24 (22-30) mmol/L Anion Gap 13 H (4-12) mmol/L BUN 7 L D (9-20) mg/dL Creatinine 0.93 (0.7-1.3) mg/dL Estim Creat Clear Calc 110 ml/min Estimated GFR > 60 (59 - ) Glucose 94 (65-110) mg/dL Calculated Osmolality 298 H (285-295) mOsm/kg Calcium 9.5 (8.4-10.2) mg/dL Total Bilirubin 0.6 (0.2-1.3) mg/dL AST 78 H (17-59) U/L ALT 172 H (6-50) U/L Alkaline Phosphatase 70 (38-126) U/L Troponin I < 0.012 (0.000-0.034) ng/mL NT-Pro-B Natriuret Pep < 20 (19.9-100) pg/mL Total Protein 8.8 H (6.3-8.2) g/dL Albumin 5.3 H (3.5-5.1) g/dL Lipase 82 (23-300) U/L Urine Opiates Screen Negative (Negative) Urine Methadone Screen Negative (Negative) Ur Barbiturates Screen Negative (Negative) Ur Phencyclidine Scrn Negative (Negative) Ur Amphetamine Screen Negative (Negative) U Benzodiazepines Scrn Negative (Negative) Urine Cocaine Screen Negative (Negative) U Cannabinoids Screen Negative (Negative) Ethyl Alcohol 183 (<10) mg/dL 04/11/25 Range/Units 07:44 WBC RBC Hgb Hct MCV MCH MCHC RDW Plt Count MPV Immature Gran % (Auto) Neut % (Auto) Lymph % (Auto) [place] % (Auto) Eos % (Auto) Baso % (Auto) Lymph # (Auto) [place] # (Auto) Eos # (Auto) Baso # (Auto) Abs Immat Gran (auto) Absolute Neuts (auto) Absolute Nucleated RBC Nucleated RBC % % Immature Plt Fraction PT (9.50-12.1) Seconds INR APTT (23.9-30.70) Sec D-Dimer (0.19-0.50) mg/L Sodium (137-145) mmol/L Potassium (3.4-5.0) mmol/L Chloride (98-107) mmol/L Carbon Dioxide (22-30) mmol/L Anion Gap (4-12) mmol/L BUN (9-20) mg/dL Creatinine (0.7-1.3) mg/dL Estim Creat Clear Calc ml/min Estimated GFR (59 - ) Glucose (65-110) mg/dL Calculated Osmolality (285-295) mOsm/kg Calcium (8.4-10.2) mg/dL Total Bilirubin (0.2-1.3) mg/dL AST (17-59) U/L ALT (6-50) U/L Alkaline Phosphatase (38-126) U/L Troponin I < 0.012 (0.000-0.034) ng/mL NT-Pro-B Natriuret Pep (19.9-100) pg/mL Total Protein (6.3-8.2) g/dL Albumin (3.5-5.1) g/dL Lipase (23-300) U/L Urine Opiates Screen (Negative) Urine Methadone Screen (Negative) Ur Barbiturates Screen (Negative) Ur Phencyclidine Scrn (Negative) Ur Amphetamine Screen (Negative) U Benzodiazepines Scrn (Negative) Urine Cocaine Screen (Negative) U Cannabinoids Screen (Negative) Ethyl Alcohol (<10) mg/dL <Juventino Leon MD - Last Filed: 04/11/25 07:12> Lab Results 04/11/25 04/11/25 04/11/25 Range/Units 04:35 04:51 05:06 WBC Cancelled 6.9 RBC Cancelled 5.55 Hgb Cancelled 16.1 Hct Cancelled 48.4 MCV Cancelled 87.2 MCH Cancelled 29.0 MCHC Cancelled 33.3 RDW Cancelled 13.1 Plt Count Cancelled 295 MPV Cancelled 9.4 Immature Gran % (Auto) Cancelled 0.3 H Neut % (Auto) Cancelled 46.9 L Lymph % (Auto) Cancelled 41.9 [place] % (Auto) Cancelled 6.4 Eos % (Auto) Cancelled 3.2 Baso % (Auto) Cancelled 1.3 H Lymph # (Auto) Cancelled 2.87 [place] # (Auto) Cancelled 0.44 Eos # (Auto) Cancelled 0.22 Baso # (Auto) Cancelled 0.09 Abs Immat Gran (auto) Cancelled 0.02 H Absolute Neuts (auto) Cancelled 3.21 Absolute Nucleated RBC Cancelled 0.00 Nucleated RBC % Cancelled 0.0 % Immature Plt Fraction Cancelled PT 9.9 (9.50-12.1) Seconds INR 0.9 APTT 25.4 (23.9-30.70) Sec D-Dimer 0.19 (0.19-0.50) mg/L Sodium 145 (137-145) mmol/L Potassium 4.4 (3.4-5.0) mmol/L Chloride 108 H (98-107) mmol/L Carbon Dioxide 24 (22-30) mmol/L Anion Gap 13 H (4-12) mmol/L BUN 7 L D (9-20) mg/dL Creatinine 0.93 (0.7-1.3) mg/dL Estim Creat Clear Calc 110 ml/min Estimated GFR > 60 (59 - ) Glucose 94 (65-110) mg/dL Calculated Osmolality 298 H (285-295) mOsm/kg Calcium 9.5 (8.4-10.2) mg/dL Total Bilirubin 0.6 (0.2-1.3) mg/dL AST 78 H (17-59) U/L ALT 172 H (6-50) U/L Alkaline Phosphatase 70 (38-126) U/L Troponin I < 0.012 (0.000-0.034) ng/mL NT-Pro-B Natriuret Pep < 20 (19.9-100) pg/mL Total Protein 8.8 H (6.3-8.2) g/dL Albumin 5.3 H (3.5-5.1) g/dL Lipase 82 (23-300) U/L Urine Opiates Screen Negative (Negative) Urine Methadone Screen Negative (Negative) Ur Barbiturates Screen Negative (Negative) Ur Phencyclidine Scrn Negative (Negative) Ur Amphetamine Screen Negative (Negative) U Benzodiazepines Scrn Negative (Negative) Urine Cocaine Screen Negative (Negative) U Cannabinoids Screen Negative (Negative) Ethyl Alcohol 183 (<10) mg/dL 04/11/25 Range/Units 07:44 WBC RBC Hgb Hct MCV MCH MCHC RDW Plt Count MPV Immature Gran % (Auto) Neut % (Auto) Lymph % (Auto) [place] % (Auto) Eos % (Auto) Baso % (Auto) Lymph # (Auto) [place] # (Auto) Eos # (Auto) Baso # (Auto) Abs Immat Gran (auto) Absolute Neuts (auto) Absolute Nucleated RBC Nucleated RBC % % Immature Plt Fraction PT (9.50-12.1) Seconds INR APTT (23.9-30.70) Sec D-Dimer (0.19-0.50) mg/L Sodium (137-145) mmol/L Potassium (3.4-5.0) mmol/L Chloride (98-107) mmol/L Carbon Dioxide (22-30) mmol/L Anion Gap (4-12) mmol/L BUN (9-20) mg/dL Creatinine (0.7-1.3) mg/dL Estim Creat Clear Calc ml/min Estimated GFR (59 - ) Glucose (65-110) mg/dL Calculated Osmolality (285-295) mOsm/kg Calcium (8.4-10.2) mg/dL Total Bilirubin (0.2-1.3) mg/dL AST (17-59) U/L ALT (6-50) U/L Alkaline Phosphatase (38-126) U/L Troponin I < 0.012 (0.000-0.034) ng/mL NT-Pro-B Natriuret Pep (19.9-100) pg/mL Total Protein (6.3-8.2) g/dL Albumin (3.5-5.1) g/dL Lipase (23-300) U/L Urine Opiates Screen (Negative) Urine Methadone Screen (Negative) Ur Barbiturates Screen (Negative) Ur Phencyclidine Scrn (Negative) Ur Amphetamine Screen (Negative) U Benzodiazepines Scrn (Negative) Urine Cocaine Screen (Negative) U Cannabinoids Screen (Negative) Ethyl Alcohol (<10) mg/dL <Chang Paniagua MD - Last Filed: 04/11/25 08:57> Imaging Data Attestation: I personally reviewed and interpreted this imaging study as follows: <Juventino Leon MD - Last Filed: 04/11/25 07:12> My impression: Chest x-ray is negative for acute process on initial read by me and pending final radiology reading <Juvention Leon MD - Last Filed: 04/11/25 07:12> ECG Data EKG #1: Attestation: I personally reviewed and interpreted this ECG as follows: <Juventino Leon MD - Last Filed: 04/11/25 07:12> ECG completion date: 04/11/25 <Juventino Leon MD - Last Filed: 04/11/25 07:12> ECG completion time: 04:52 <Juventino Leon MD - Last Filed: 04/11/25 07:12> EKG Interpretation: tachycardia, sinus rhythm, no ectopy, non-specific ST changes, normal QRS, normal QT and left axis <Juventino Leon MD - Last Filed: 04/11/25 07:12> Discharge Plan Discharge Clinical Impression: Atypical chest pain, Transaminitis <Juventino Leon MD - Last Filed: 04/11/25 07:12> Patient Disposition: Home <Juventino Leon MD - Last Filed: 04/11/25 07:12> Condition: Stable <Juventino Leon MD - Last Filed: 04/11/25 07:12> Instructions: Antibiotic Form, Chest Pain (DC), Transaminitis (ED) <Juventino Leon MD - Last Filed: 04/11/25 07:12> Patient Language: Mongolian <Juventino Leon MD - Last Filed: 04/11/25 07:12> Prescriptions: No Action sertraline 50 mg tablet 50 mg PO DAILY Qty: 90 2RF ropinirole 4 mg tablet 4 mg PO QHS Qty: 30 2RF meloxicam 7.5 mg tablet 7.5 mg PO DAILY Qty: 30 1RF ferrous sulfate 325 mg (65 mg iron) tablet 325 mg PO DAILY Qty: 30 0RF ascorbic acid (vitamin C) 1,000 mg capsule 1 g PO DAILY Qty: 30 0RF cyclobenzaprine 10 mg tablet 10 mg PO Q8H PRN (Reason: muscle spasm) Qty: 40 2RF <Juventino Leon MD - Last Filed: 04/11/25 07:12> Follow-up/Referrals: Nabeel Brown MD [Primary Care Provider] - <Juventino Leon MD - Last Filed: 04/11/25 07:12> Time of Disposition: 08:57 <Juventino Leon MD - Last Filed: 04/11/25 07:12> 08:57 <Chang Paniagua MD - Last Filed: 04/11/25 08:57>
--- NOTE | 2025-04-11 04:33 | PC.NURSE ---
SHELL ALY, AT THE BEDSIDE PLACING IV LINE. DR MCDANIEL AT THE BEDSIDE.
[2025-04-11 05:08] LABS: INR 0.9; Partial Thromboplastin Time 25.4 Sec (23.9-30.70); Prothrombin Time 9.9 Seconds (9.50-12.1)
[2025-04-11 05:10] LABS: Basophils Absolute Auto 0.09 K/mm3 (0.00-0.10); Basophils Percent Auto 1.3 % (0.0-1.0); Eosinophils Absolute Auto 0.22 K/mm3 (0.02-0.50); Eosinophils Percent Auto 3.2 % (1.0-6.0); Hematocrit 48.4 % (40.0-54.0); Hemoglobin 16.1 g/dL (14.0-18.0); Immature Granulocyte Absolute 0.02 K/mm3 (0.00-0.00); Immature Granulocyte Percent A 0.3 % (0.0-0.0); Lymphocytes Absolute Auto 2.87 K/mm3 (1.10-4.50); Lymphocytes Percent Auto 41.9 % (18.0-42.0); Mean Corpuscular HGB Conc 33.3 g/dL (32-36); Mean Corpuscular Volume 87.2 fL (78.0-102.0); Mean Platelet Volume 9.4 fl (8.7-11.0); Monocytes Absolute Auto 0.44 K/mm3 (0.10-0.90); Monocytes Percent Auto 6.4 % (2.0-11.0); Neutrophils Absolute Auto 3.21 K/mm3 (1.70-7.20); Neutrophils Percent Auto 46.9 % (50.0-70.0); Platelet Count Result 295 K/mm3 (150-420); Red Blood Count 5.55 M/mm3 (4.70-6.10); Red Cell Distribution Width 13.1 % (11.6-14.4); White Blood Count 6.9 K/mm3 (4.8-10.8)
[2025-04-11 05:16] LABS: D Dimer 0.19 mg/L (0.19-0.50)
[2025-04-11 05:22] LABS: Lipase 82 U/L (23-300)
--- NOTE | 2025-04-11 05:31 | PC.NURSE ---
DR MCDANIEL AWARE OF CURRENT BLOOD PRESSURES
[2025-04-11 05:35] LABS: Troponin I < 0.012 ng/mL (0.000-0.034)
[2025-04-11] MEDS: LABETALOL HCL INJ 100 MG/20 ML VIAL IV PUSH (05:48)
--- NOTE | 2025-04-11 05:53 | PC.NURSE ---
LABETALOL 2.5 MG GIVEN, NEW BLOOD PRESSURE OBTAINED. NEW READING OF 127/89. DR MCDANIEL WAS NOTIFIED.
[2025-04-11 06:25] LABS: Anion Gap 13 mmol/L (4-12); Carbon Dioxide 24 mmol/L (22-30); Chloride 108 mmol/L (98-107); Potassium 4.4 mmol/L (3.4-5.0); Sodium 145 mmol/L (137-145)
[2025-04-11 06:26] LABS: Aspartate Amino Transferase 78 U/L (17-59); Bilirubin,Total 0.6 mg/dL (0.2-1.3); Blood Urea Nitrogen 7 mg/dL (9-20); Calcium 9.5 mg/dL (8.4-10.2); Estimated CRCL calculation 110 ml/min; Estimated Glomerular Filt Rate > 60; Glucose 94 mg/dL (65-110); Osmolality Calculated 298 mOsm/kg (285-295)
[2025-04-11 06:27] LABS: Alanine Aminotransferase 172 U/L (6-50); Albumin Level 5.3 g/dL (3.5-5.1); Alkaline Phosphatase 70 U/L (38-126); Total Protein 8.8 g/dL (6.3-8.2)
--- NOTE | 2025-04-11 06:57 | PC.NURSE ---
PATIENT IS CURRENTLY RESTING ON STRETCHER. WAITING ON UPDATE FROM DR MCDANIEL. DENIES ANY NEEDS AT THIS TIME.
[2025-04-11 07:01] LABS: NT Pro B Type Natriuretic Pept < 20 pg/mL (19.9-100)
[2025-04-11 07:12] LABS: Ethanol 183 mg/dL (<10)
[2025-04-11 07:57] LABS: Amphetamine Screen Urine Negative (Negative); Barbiturate Screen Urine Negative (Negative); Benzodiazepines Screen Urine Negative (Negative); Cannabinoid Screen Urine Negative (Negative); Cocaine Screen Urine Negative (Negative); Methadone Screen Urine Negative (Negative); Opiate Screen Urine Negative (Negative); Phencyclidine Screen Urine Negative (Negative)
[2025-04-11 08:30] LABS: Troponin I < 0.012 ng/mL (0.000-0.034)
--- NOTE | 2025-04-11 08:56 | PC.NURSE ---
[id number] dr reyes reviewing chart. labs completed.
--- NOTE | 2025-04-11 08:56 | PC.NURSE ---
Dr reyes in room with pt. discussing plan of care.
== END 2025-04-11 09:08 | disposition home or self-care (01) ==
PROVIDERS: Emergency Medicine; Emergency Provider Internal Medicine Critical Care Medicine; PCP Family Medicine
DX: R07.89 Other chest pain (principal); R74.01 Elevation of levels of liver transaminase levels; I10 Essential (primary) hypertension; I25.10 Atherosclerotic heart disease of native coronary artery without angina pectoris
CPT/HCPCS: 36415; 71045; 80053; 80307; 82077; 83690; 83880; 84484; 85025; 85380; 85610; 85730; 93005; 96374; 99284